=== PATIENT | female | born 1945 | race Caucasian/White ===

== ENCOUNTER 2023-02-02 08:04 | Observation (INO) ==
[~2023-02-02 08:04] MED LIST: Buffered Lidocaine 1% SYRIN 1 ml INTRADERM ONE; Famotidine IV 10 MG/ML 2 ml VIAL (20 mg) IV ONE; Lactated Ringers 1000 ml BAG 1,000 ML IV SCH
[2023-02-02] MEDS ORDERED: Famotidine IV 10 MG/ML 2 ml VIAL (20 mg) ONE (08:41)
[2023-02-02] MEDS ORDERED: ceFAZolin 2 GM in NS PREMIX 2 GM/100 ML BAG IVPB ONE (08:41)
[2023-02-02] MEDS ORDERED: fentaNYL 100 mcg/2 ml 50 MCG/ML VIAL ONE ×2 (08:51→09:50)
[2023-02-02] MEDS ORDERED: Dexamethasone IV 4 MG/ML VIAL 1 ml VIAL ONE (08:51)
[2023-02-02] MEDS ORDERED: Propofol 10 MG/ML 20 ML BTL ONE ×2 (08:51→12:33)
[2023-02-02] MEDS ORDERED: Lidocaine 2% PF 5 ML VIAL ONE ×2 (08:51→12:29)
[2023-02-02] MEDS ORDERED: Ondansetron 4 mg VIAL 2 MG/ML 2 ml VIAL ONE (08:51)
[2023-02-02] MEDS ORDERED: Midazolam 2 mg/2 ml VIAL 1 mg/ml 2 ml VIAL (2 mg) ONE (08:52)
[2023-02-02] MEDS ORDERED: Midazolam 5 mg/5 ml VIAL 1 mg/ml 5 ml VIAL (5 mg) ONE (09:50)
[2023-02-02] MEDS ORDERED: ROPIVACAINE 5 MG/ML 30 ML BTL (0.5%) ONE ×2 (09:50→10:10)
[2023-02-02 11:03] LABS: Rapid COVID-19 Molecular Undetected (Undetected)
[2023-02-02] MEDS ORDERED: Acetaminophen IV 1 GM/100ML 1,000 MG/100 ML BAG IV ONE (11:35)
[2023-02-02] MEDS ORDERED: Phenylephrine 40 mcg/mL 10mL (400mcg) SYRINGE ONE (11:39)
[2023-02-02] MEDS ORDERED: Phenylephrine IV 10 MG/ML 1 ml VIAL ONE (11:44)
[2023-02-02] MEDS ORDERED: Glycopyrrolate IV 0.2 MG/ML 1 ML VIAL ONE (12:25)
[2023-02-02] MEDS ORDERED: Morphine 2 MG/ML SYRINGE IV PRN (12:43)
[2023-02-02] MEDS ORDERED: Ondansetron ODT 4 mg TAB 4 MG TAB PO PRN (12:43)
[2023-02-02] MEDS ORDERED: Lactulose 30 ml UDC PO PRN (12:43)
[2023-02-02] MEDS ORDERED: Ondansetron 4 mg VIAL 2 MG/ML 2 ml VIAL IV PRN (12:43)
[2023-02-02] MEDS ORDERED: Magnesium Hydroxide LIQ 30 ML UDC PO PRN (12:43)
[2023-02-02] MEDS ORDERED: HYDROmorphone 1 MG/1 ML SYRINGE IV PRN (13:10)
[2023-02-02] MEDS ORDERED: Naloxone 0.4 mg VIAL 0.4 mg/ml 1 ml VIAL IV PRN (13:10)
[2023-02-02] MEDS ORDERED: fentaNYL 100 mcg/2 ml 50 MCG/ML VIAL IV PRN (13:10)
[2023-02-02] MEDS ORDERED: Albuterol HFA INHALER 8 gm MDI INH PRN (14:42)
[2023-02-02] MEDS ORDERED: Albuterol 2.5mg/3 ml (0.083%) NEB.SOLN INH PRN (14:42)
[2023-02-02] MEDS: Lactated Ringers 1000 ml BAG 1,000 ML IV SCH (17:25)
[2023-02-02] MEDS: Magnesium Hydroxide LIQ 30 ML UDC PO SCH (20:28)
[2023-02-02] MEDS: ceFAZolin 1 GM ADVAN 1 GM in NS 0.9% 50 ML 50 ML IVPB SCH (20:46)
[2023-02-02] MEDS: Fluticasone NASAL SPRAY 50MCG 16 gm SPRAY BTL BOTH NARES SCH (21:13)
[2023-02-03] MEDS: ceFAZolin 1 GM ADVAN 1 GM in NS 0.9% 50 ML 50 ML IVPB SCH ×2 (03:49→12:57)
[2023-02-03] MEDS: Lactated Ringers 1000 ml BAG 1,000 ML IV SCH (03:49)
[2023-02-03] MEDS: Magnesium Hydroxide LIQ 30 ML UDC PO SCH (08:15)
[2023-02-03 08:35] LABS: Hematocrit 28.6 % (35-45); Hemoglobin 9.8 g/dL (11.5-14.3); Mean Platelet Volume 8.6 fL (7.5-11.2); Platelet Count 267 10^3/uL (150-450)
[2023-02-03 08:54] LABS: Calcium 8.8 mg/dL (8.6-10.3); Creatinine, Serum 1.24 mg/dL (0.51-0.95); Potassium 4.9 mmol/L (3.5-5.0); eGFR CKD-EPI 45.4 (>60)
[2023-02-03] MEDS ORDERED: Vitamin THERAPEUTIC TAB PO SCH (09:00)
[2023-02-03] MEDS: Fluticasone NASAL SPRAY 50MCG 16 gm SPRAY BTL BOTH NARES SCH (10:09)
[2023-02-03 14:26] VITALS: BP 151/64
== END 2023-02-03 16:52 | disposition home or self-care (01) | DRG 470 ==
LOC: AA 08:04 → INTOOBSV 08:04 → SSU 14:26
PROVIDERS: ADMIT Orthopaedic Surgery Adult Reconstructive Orthopaedic Surgery; ATTEND Orthopaedic Surgery Adult Reconstructive Orthopaedic Surgery